=== PATIENT | male | born 1940 | race Caucasian/White ===

== ENCOUNTER 2017-04-07 16:33 | Emergency (ER) | payer MEDICARE, OTHER ==
[2017-04-07 16:40] VITALS: RESP 18
--- NOTE | 2017-04-07 17:19 | ED ---
General Adult HPI - General Chief complaint: Recheck/Abnormal Lab/Rx Stated complaint: Abnormal Labs Time Seen by Provider: 04/07/17 16:42 Source: patient, family, EMS, RN notes reviewed Mode of arrival: EMS Limitations: no limitations - History of Present Illness Initial comments: 76-year-old male with history of non-Hodgkin's lymphoma and dementia presenting after he had an abnormal right upper extremity duplex identifying potential bone lesions. The daughter states that he has had right upper extremity swelling for the past 2 weeks. He states initially he felt this was secondary to him starting physical therapy due to a right frozen shoulder. However they followed up with orthopedics recently and had a duplex done which showed this abnormal result recommended to come to the ED with concern for possible malignancy. Daughter states that he was ordered to have an MRI although they were concerned about trying to get this done sooner. The patient states that he has a lot of right shoulder pain but he denies any shortness of breath. Denies any chest pain. Daughter also states he has a history of diabetes and is concerned about his sugar being low. EMS Accu-Chek was 164. - Related Data Home Medications Medication Instructions Recorded Confirmed Aspirin [Aspirin EC] 81 mg PO DAILY 03/17/16 04/07/17 Esomeprazole Magnesium [NexIUM] 40 mg PO DAILY 03/17/16 04/07/17 Fludrocortisone [Florinef] 0.1 mg PO DAILY 03/17/16 04/07/17 Insulin Detemir [Levemir Flextouch] 55 units SQ BID 03/17/16 04/07/17 Tamsulosin HCl [Flomax] 0.4 mg PO HS 03/17/16 04/07/17 oxyCODONE-APAP 10-325MG [Percocet 1 tab PO Q6HR PRN 03/17/16 04/07/17 10-325 mg] Albuterol Nebulized [Ventolin 2.5 mg INHALATION RT-Q12H PRN 04/07/17 04/07/17 Nebulized] Atorvastatin [Lipitor] 40 mg PO HS 04/07/17 04/07/17 Banatrol Plus Banana Flakes 1 unit PO BID 04/07/17 04/07/17 Bismuth Subsalicylate 524 mg PO TID PRN 04/07/17 04/07/17 [Pepto-Bismol] Fluticasone/Vilanterol [Breo 1 puff INHALATION RT-DAILY 04/07/17 04/07/17 Ellipta 100-25 Mcg Inhaler] Gabapentin [Neurontin] 800 mg PO TID 04/07/17 04/07/17 INSULIN LISPRO (HumaLOG) [HumaLOG] 38 units SQ AC-TID 04/07/17 04/07/17 Ipratropium-Albuterol Nebulize 3 ml INHALATION RT-Q6H PRN 04/07/17 04/07/17 [Duoneb 0.5 mg-3 mg/3 ml Soln] LORazepam [Ativan] 0.5 mg PO DAILY PRN 04/07/17 04/07/17 Lidocaine 5% Oint [Xylocaine 5% 1 applic TOPICAL TID 04/07/17 04/07/17 Oint] Lisinopril [Zestril] 10 mg PO DAILY 04/07/17 04/07/17 Melatonin 3 mg PO HS 04/07/17 04/07/17 [place]-3/Dha/Epa/Fish Oil [Fish Oil 1 cap PO Q12HR 04/07/17 04/07/17 500 mg Softgel] Potassium Chloride ER [K-Dur 20] 20 meq PO DAILY 04/07/17 04/07/17 buPROPion HCL [Wellbutrin SR] 150 mg PO Q12H 04/07/17 04/07/17 guaiFENesin SYRUP 100MG/5ML 200 mg PO Q6H PRN 04/07/17 04/07/17 [Robitussin] metFORMIN HCL [Metformin HCl] 1,000 mg PO BID 04/07/17 04/07/17 Allergies Allergy/AdvReac Type Severity Reaction Status Date / Time simvastatin [From Zocor] Allergy Unknown Verified 04/07/17 16:40 Sulfa (Sulfonamide Allergy Unknown Verified 04/07/17 16:40 Antibiotics) Review of Systems ROS Statement: Those systems with pertinent positive or pertinent negative responses have been documented in the HPI. ROS Other: All systems not noted in ROS Statement are negative. 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 No acute distress. Does not appear acutely ill. Eyes: BRYANNA, EOM intact. No nystagmus. No scleral icterus. HENT: Atraumatic, normocephalic. Mucous membranes moist. Trachea midline. Neck: The neck is supple, there is no tenderness or JVD. Cardiovascular: Regular rate and rhythm. No murmur, rub, or gallop is appreciated. Distal pulses intact, radial 2+ bilaterally. Respiratory: Lungs are clear to auscultation bilaterally. No wheezes, rales, rhonchi. No respiratory distress. Gastrointestinal: Soft, Nontender. No rebound or guarding. Non-distended. No masses or organomegaly noted. No CVA tenderness. Musculoskeletal: Right shoulder with mild tenderness. Somewhat limited ROM. No gross deformity. No strength deficits. Right upper extremity with nonpitting edema. Neurological: A&Ox2. CN II-XII grossly intact, There are no obvious motor or sensory deficits. Coordination appears grossly intact. Speech is normal. Skin: Skin is warm and dry. Multiple pale skin plaques noted on the right upper extremity, these are nontender Psychiatric: Cooperative, appropriate mood & affect, normal judgment. Limitations: no limitations Course Vital Signs 04/07/17 04/07/17 04/07/17 16:34 18:53 22:00 Temperature 98 F Pulse Rate 85 79 79 Respiratory 18 18 18 Rate Blood Pressure 156/70 176/79 152/67 O2 Sat by Pulse 97 96 96 Oximetry 04/07/17 04/07/17 04/07/17 22:14 22:15 22:42 Temperature 97.8 F 97.8 F 97.1 F L Pulse Rate 77 77 82 Respiratory 18 18 18 Rate Blood Pressure 167/72 167/72 162/72 O2 Sat by Pulse 99 99 96 Oximetry EKG Findings - EKG Comments: EKG Findings:: EKG 17:28. Sinus rhythm with first-degree AV block. Rate 84. Right bundle branch block. No STEMI. Abnormal EKG. Similar to prior EKG 01/03. Medical Decision Making - Medical Decision Making 76-year-old male presenting for evaluation after abnormal upper extremity ultrasound. Daughter is very concerned because of patient's history of non- Hodgkin's lymphoma and new evidence of bone lesions and ultrasound. Patient was recommended to have an MRI by orthopedic physician for further evaluation. Chest x-ray no acute process Lab work was stable CBC, stable BMP. Magnesium is low and replaced. CK-MB is noted to be elevated at 5.7 - this is thought likely secondary to muscle breakdown given recent initiation of physical therapy. Low suspicion of ACS in setting of negative troponin. Troponins negative 2. Patient reevaluated and states he is feeling well. I had a long discussion with daughter about further outpatient workup for further evaluation and possible return of non-Hodgkin's lymphoma given these possible bone lesions. Patient and daughter reassured with workup today. Patient does not appear to require admission at this time. Discussed elevation of the affected limb and continuing his normal medications. Discussed close follow-up with PCP and orthopedic surgery. Patient has previously followed with oncology through [facility]. Discussed concerning signs symptoms for immediate return to the ED. Patient and daughter are agreeable to plan of discharge home. - Lab Data Result diagrams: 04/07/17 17:35 04/07/17 17:35 Lab Results 04/07/17 04/07/17 04/07/17 Range/Units 17:35 17:35 17:35 WBC 5.3 (3.8-10.6) k/uL RBC 3.85 L (4.30-5.90) m/uL Hgb 10.3 L (13.0-17.5) gm/dL Hct 32.6 L (39.0-53.0) % MCV 84.7 (80.0-100.0) fL MCH 26.8 (25.0-35.0) pg MCHC 31.6 (31.0-37.0) g/dL RDW 15.9 H (11.5-15.5) % Plt Count 162 (150-450) k/uL Neutrophils % 71 % Lymphocytes % 18 % Monocytes % 5 % Eosinophils % 3 % Basophils % 0 % Neutrophils # 3.8 (1.3-7.7) k/uL Lymphocytes # 1.0 (1.0-4.8) k/uL Monocytes # 0.2 (0-1.0) k/uL Eosinophils # 0.2 (0-0.7) k/uL Basophils # 0.0 (0-0.2) k/uL Hypochromasia Slight Poikilocytosis Slight Sodium 141 (137-145) mmol/L Potassium 4.2 (3.5-5.1) mmol/L Chloride 103 (98-107) mmol/L Carbon Dioxide 28 (22-30) mmol/L Anion Gap 10 mmol/L BUN 18 (9-20) mg/dL Creatinine 0.94 (0.66-1.25) mg/dL Est GFR (MDRD) Af Amer >60 (>60 ml/min/1.73 sqM) Est GFR (MDRD) Non-Af >60 (>60 ml/min/1.73 sqM) Glucose 187 H (74-99) mg/dL Calcium 8.5 (8.4-10.2) mg/dL Magnesium 1.3 L (1.6-2.3) mg/dL Total Bilirubin 0.6 (0.2-1.3) mg/dL AST 24 (17-59) U/L ALT 24 (21-72) U/L Alkaline Phosphatase 69 (38-126) U/L CK-MB (CK-2) 5.7 H* (0.0-2.4) ng/mL Troponin I <0.012 (0.000-0.034) ng/mL NT-Pro-B Natriuret Pep pg/mL Total Protein 5.8 L (6.3-8.2) g/dL Albumin 3.4 L (3.5-5.0) g/dL Urine Color Urine Appearance (Clear) Urine pH (5.0-8.0) Ur Specific [place] (1.001-1.035) Urine Protein (Negative) Urine Glucose (UA) (Negative) Urine Ketones (Negative) Urine Blood (Negative) Urine Nitrite (Negative) Urine Bilirubin (Negative) Urine Urobilinogen (<2.0) mg/dL Ur Leukocyte Esterase (Negative) Urine RBC (0-5) /hpf Urine WBC (0-5) /hpf Ur Squamous Epith Cells (0-4) /hpf Amorphous Sediment (None) /hpf Urine Mucus (None) /hpf 04/07/17 04/07/17 04/07/17 Range/Units 17:35 20:05 20:10 WBC (3.8-10.6) k/uL RBC (4.30-5.90) m/uL Hgb (13.0-17.5) gm/dL Hct (39.0-53.0) % MCV (80.0-100.0) fL MCH (25.0-35.0) pg MCHC (31.0-37.0) g/dL RDW (11.5-15.5) % Plt Count (150-450) k/uL Neutrophils % % Lymphocytes % % Monocytes % % Eosinophils % % Basophils % % Neutrophils # (1.3-7.7) k/uL Lymphocytes # (1.0-4.8) k/uL Monocytes # (0-1.0) k/uL Eosinophils # (0-0.7) k/uL Basophils # (0-0.2) k/uL Hypochromasia Poikilocytosis Sodium (137-145) mmol/L Potassium (3.5-5.1) mmol/L Chloride (98-107) mmol/L Carbon Dioxide (22-30) mmol/L Anion Gap mmol/L BUN (9-20) mg/dL Creatinine (0.66-1.25) mg/dL Est GFR (MDRD) Af Amer (>60 ml/min/1.73 sqM) Est GFR (MDRD) Non-Af (>60 ml/min/1.73 sqM) Glucose (74-99) mg/dL Calcium (8.4-10.2) mg/dL Magnesium (1.6-2.3) mg/dL Total Bilirubin (0.2-1.3) mg/dL AST (17-59) U/L ALT (21-72) U/L Alkaline Phosphatase (38-126) U/L CK-MB (CK-2) (0.0-2.4) ng/mL Troponin I 0.013 (0.000-0.034) ng/mL NT-Pro-B Natriuret Pep 242 pg/mL Total Protein (6.3-8.2) g/dL Albumin (3.5-5.0) g/dL Urine Color Light Yellow Urine Appearance Clear (Clear) Urine pH 6.0 (5.0-8.0) Ur Specific [place] 1.008 (1.001-1.035) Urine Protein Trace H (Negative) Urine Glucose (UA) Negative (Negative) Urine Ketones Negative (Negative) Urine Blood Moderate H (Negative) Urine Nitrite Negative (Negative) Urine Bilirubin Negative (Negative) Urine Urobilinogen <2.0 (<2.0) mg/dL Ur Leukocyte Esterase Negative (Negative) Urine RBC 12 H (0-5) /hpf Urine WBC 2 (0-5) /hpf Ur Squamous Epith Cells <1 (0-4) /hpf Amorphous Sediment Rare H (None) /hpf Urine Mucus Rare H (None) /hpf - EKG Data -: EKG Interpreted by Me EKG shows normal: sinus rhythm Rate: normal When compared to previous EKG there are: no significant change Interpretation: no acute changes - Radiology Data Radiology results: report reviewed, image reviewed Disposition Clinical Impression: Edema of upper extremity, Diabetes mellitus, Abnormal ultrasound Disposition: HOME SELF-CARE Condition: Stable Instructions: Edema (ED) Additional Instructions: Please follow up with his primary doctor as soon as possible to discuss follow up with oncology. Please work to schedule and have right upper extremity MRI performed. Referrals: Nonstaff,Physician [Primary Care Provider] - 1-2 days Time of Disposition: 21:31
[2017-04-07 17:53] LABS: Basophils % (A) 0 %; Eosinophils # (A) 0.2 k/uL (0-0.7); Eosinophils % (A) 3 %; HCT 32.6 % (39.0-53.0); HDW 3.62; HGB 10.3 gm/dL (13.0-17.5); Hypochromasia Slight; Luc # (Auto) 0.12; Luc % (Auto) 2; Lymphocytes % (A) 18 %; MCH 26.8 pg (25.0-35.0); MCHC 31.6 g/dL (31.0-37.0); MCV 84.7 fL (80.0-100.0); Mean Platelet Volume 7.6; Monocytes # (A) 0.2 k/uL (0-1.0); Monocytes % (A) 5 %; Neutrophils # (A) 3.8 k/uL (1.3-7.7); Neutrophils % (A) 71 %; Poikilocytosis Slight; RBC 3.85 m/uL (4.30-5.90); RDW 15.9 % (11.5-15.5); WBC 5.3 k/uL (3.8-10.6); WBC (Perox) 5.76
[2017-04-07 17:58] LABS: ALT 24 U/L (21-72); AST 24 U/L (17-59); Alkaline Phosphatase 69 U/L (38-126); Anion Gap 10 mmol/L; Blood Urea Nitrogen 18 mg/dL (9-20); Calcium 8.5 mg/dL (8.4-10.2); Carbon Dioxide 28 mmol/L (22-30); Chloride 103 mmol/L (98-107); Glucose 187 mg/dL (74-99); Magnesium 1.3 mg/dL (1.6-2.3); Non-African American GFR(MDRD) >60 (>60 ml/min/1.73 sqM); Potassium 4.2 mmol/L (3.5-5.1); Sodium 141 mmol/L (137-145); Total Bilirubin 0.6 mg/dL (0.2-1.3); Total Protein 5.8 g/dL (6.3-8.2)
--- NOTE | 2017-04-07 18:10 | XR ---
EXAMINATION TYPE: XR chest 2V DATE OF EXAM: 04/07/2017 COMPARISON: 01/04/2016 HISTORY: Arm edema TECHNIQUE: Frontal and lateral views of the chest are obtained. FINDINGS: There is no heart failure nor confluent pneumonic infiltrate. There are no hilar masses. C ostophrenic angles are clear. There is spurring in the thoracic spine. IMPRESSION: No active cardiopulmonary disease. No change.
[2017-04-07 18:24] LABS: Troponin I <0.012 ng/mL (0.000-0.034)
[2017-04-07 18:29] LABS: Creatine Kinase MB 5.7 ng/mL (0.0-2.4)
[2017-04-07] MEDS: MAGNESIUM SULFATE-D5W PMX 1 GM in DEXTROSE/WATER 1 100ML.BAG IVPB SCH ×2 (18:50→20:36)
[2017-04-07] MEDS ORDERED: oxyCODONE-APAP 10-325MG 1 EACH TAB PO STA (20:13)
[2017-04-07 20:25] LABS: Amorphous Sediment,Urine Rare /hpf; Appearance,Urine Clear (Clear); Bilirubin,Urine Negative (Negative); Glucose,Urine (UA) Negative (Negative); Ketones,Urine Negative (Negative); Leukocyte Esterase,Urine Negative (Negative); Mucus,Urine Rare /hpf; Nitrite,Urine Negative (Negative); Particle Count 493; Protein,Urine Trace (Negative); RBC,Urine 12 /hpf (0-5); Specific Gravity,Urine 1.008 (1.001-1.035); Squamous Epithelial Cell,Urine <1 /hpf (0-4); UA Billing (MACRO vs. MICRO) MICRO; Urobilinogen,Urine <2.0 mg/dL (<2.0); WBC,Urine 2 /hpf (0-5)
[2017-04-07 22:43] VITALS: BP 162/72; PULSE 82; TEMP 97.1
== END 2017-04-07 22:52 | disposition home or self-care (01) ==
LOC: EEVIPCON 16:33 → EC 16:33
DX: R60.0 Localized edema (principal); E11.9 Type 2 diabetes mellitus without complications; R93.6 Abnormal findings on diagnostic imaging of limbs; J44.9 Chronic obstructive pulmonary disease, unspecified; Z85.72 Personal history of non-Hodgkin lymphomas; Z87.891 Personal history of nicotine dependence; Z79.4 Long term (current) use of insulin; Z79.51 Long term (current) use of inhaled steroids; Z79.82 Long term (current) use of aspirin; Z79.84 Long term (current) use of oral hypoglycemic drugs; Z79.899 Other long term (current) drug therapy; Z88.2 Allergy status to sulfonamides; Z88.8 Allergy status to other drugs, medicaments and biological substances
CPT/HCPCS: 36415; 93005; 83880; 80053; 82553; 83735; 84484; 85025; 81001; 71020; 99284; 96365 ×2; J3475